=== PATIENT | female | born 1995 | race Caucasian/White ===

== ENCOUNTER 2018-12-12 04:51 | Emergency (ER) | payer SELFPAY ==
[~2018-12-12] VITALS: Ht 162.6 cm; Wt 116.6 kg
[2018-12-12] MEDS ORDERED: ONDANSETRON 4 MG (ZOFRAN) ORAL DISSOLVE TAB SL STA (05:00)
--- NOTE | 2018-12-12 05:21 | ED General ---
General Chief Complaint: Substance Abuse Stated Complaint: SUICIDAL Source of Information: Patient, EMS Exam Limitations: No Limitations History of Present Illness Date Seen by Provider: Dec 12, 2018 Time Seen by Provider: 04:53 Initial Comments Here with report of nausea. She denies suicidal ideation. She states that her moods are up and down that she does not want to kill herself. She took her prescribed medicines tonight that were given to her in the correct dosing. She did take one Tylenol 500 mg tablet as well. She reports that she did have a glass of wine and a few shots of vodka to help her mood. That did not help really and actually made her nauseated. She wanted to go to the store to get something for nausea and apparently her friend thought that she was not acting well. Ultimately EMS was called. Patient was reportedly laying in the street trying to go to sleep. Patient adamantly denies suicidality or homicidality. States that her only concern is that she is nauseated. Timing/Duration: 1-3 Hours Severity: Mild Associated Systoms: No Cough, No Fever/Chills; Nausea/Vomiting; No Shortness of Air, No Weakness Allergies and Home Medications Allergies Coded Allergies: peanut (Verified Allergy, Unknown, 12/12/18) Patient Home Medication List Home Medication List Reviewed: Yes Review of Systems Review of Systems Constitutional: see HPI; No chills, No fever EENTM: no symptoms reported Respiratory: No cough, No short of breath Cardiovascular: No chest pain, No edema Gastrointestinal: No abdominal pain; nausea; No vomiting Genitourinary: no symptoms reported Musculoskeletal: no symptoms reported Skin: no symptoms reported Psychiatric/Neurological: See HPI, Depressed, Emotional Problems; Denies Headache, Denies Weakness All Other Systems Reviewed Negative Unless Noted: Yes Past Mduneft-Uvvedu-Mfiysk Hx Past Med/Social Hx: Reviewed Nursing Past Med/Soc Hx Patient Social History Alcohol Use: Occasionally Uses Number of Drinks Today: 7 Alcohol Beverage of Choice: Wine, Vodka Recreational Drug Use: Yes Drug of Choice: MARIJUANNA Smoking Status: Never a Smoker Type Used: Cigarettes Recent Hopitalizations: No Immunizations Up To Date Tetanus Booster (TDap): Less than 5yrs PED Vaccines UTD: Yes Past Medical History Surgeries: No Respiratory: Yes Asthma Cardiac: No Neurological: No Genitourinary: No Gastrointestinal: No Musculoskeletal: No Endocrine: No HEENT: No Cancer: No Psychosocial: No Integumentary: Yes Eczema Family Medical History Reviewed Nursing Family Hx No Pertinent Family Hx Physical Exam Vital Signs Vital Signs - First Documented 12/12/18 04:51 Temp 100.0 Pulse 102 Resp 20 B/P (MAP) 137/92 (107) Pulse Ox 94 O2 Delivery Room Air Capillary Refill : Height, Weight, BMI Height: '" Weight: lbs. oz. kg; BMI Method: General Appearance: No Apparent Distress, WD/WN, Obese HEENT: PERRL/EOMI, Pharynx Normal Neck: Non Tender, Supple Respiratory: Lungs Clear, Normal Breath Sounds Cardiovascular: Regular Rate, Rhythm, No Murmur Gastrointestinal: Non Tender, Soft Back: Normal Inspection, No CVA Tenderness, No Vertebral Tenderness Extremity: Normal Range of Motion, Non Tender Neurologic/Psychiatric: Alert, Oriented x3 Skin: Normal Color, Warm/Dry Progress/Results/Core Measures Suspected Sepsis SIRS Temperature: Pulse: Respiratory Rate: Blood Pressure / Mean: Results/Orders Lab Results Laboratory Tests Test 12/12/18 05:45 Range/Units Urine Color YELLOW Urine Clarity SLIGHTLY CLOUDY Urine pH 5 5-9 Urine Specific [place] 1.015 L 1.016-1.022 Urine Protein NEGATIVE NEGATIVE Urine Glucose (UA) NEGATIVE NEGATIVE Urine Ketones NEGATIVE NEGATIVE Urine Nitrite NEGATIVE NEGATIVE Urine Bilirubin NEGATIVE NEGATIVE Urine Urobilinogen 1 NORMAL MG/DL Urine Leukocyte Esterase 1+ H NEGATIVE Urine RBC (Auto) NEGATIVE NEGATIVE Urine RBC NONE /HPF Urine WBC RARE /HPF Urine Squamous Epithelial Cells 25-50 H /HPF Urine Crystals NONE /LPF Urine Bacteria TRACE /HPF Urine Casts NONE /LPF Urine Mucus SMALL H /LPF Urine Culture Indicated NO My Orders Orders - SAVAGE MEHTA MD Ondansetron Oral Dissolve Tab (Zofran (12/12/18 05:00) Ua Culture If Indicated (12/12/18 05:21) Urine Bedside (12/12/18 05:21) Vital Signs/I&O 12/12/18 04:51 Temp 100.0 Pulse 102 Resp 20 B/P (MAP) 137/92 (107) Pulse Ox 94 O2 Delivery Room Air Capillary Refill : Progress Note : Progress Note Seen and evaluated. Patient denies suicidal ideation and is not really wanting any significant workup. Given presentation, further workup is not indicated. She is nauseated and does have a mild fever of 100 Fahrenheit. We will check UA and UCG. Zofran 4 mg sublingual ordered. Monitor patient. 0606: Overall feels better. Discharged home with return precautions. Patient verbalize understanding instructions and agreement with plan. Departure Impression Primary Impression: Nausea Additional Impression: Depression Qualified Codes: F32.9 - Major depressive disorder, single episode, unspecified Disposition: 01 HOME, SELF-CARE Condition: Improved Departure-Patient Inst. Decision time for Depature: 06:06 Referrals: NO,LOCAL PHYSICIAN (PCP) Primary Care Physician Patient Instructions: Depression, Adult (DC), Nausea and Vomiting, Adult (DC) Add. Discharge Instructions: All discharge instructions reviewed with patient and/or family. Voiced understanding. Take medications as directed. Clear liquid or light diet for the next 24 hours and then advance as tolerated. You should avoid alcohol and drugs. If you're having thoughts of suicide or increasing depression you may call the save line at [phone]. Return for worse pain, fever, vomiting, weakness, breathing problems or other concerns as needed. Scripts Ondansetron (Ondansetron Odt) 4 Mg Tab.rapdis 4 MG PO Q6H PRN for NAUSEA/VOMITING, #8 TAB 0 Refills Prov: SAVAGE MEHTA MD 12/12/18 SAVAGE MEHTA MD Dec 12, 2018 05:21
[2018-12-12 05:50] LABS: BILIRUBIN,URINE NEGATIVE (NEGATIVE); CLARITY,URINE SLIGHTLY CLOUDY; COLOR,URINE YELLOW; GLUCOSE, URINE (UA) NEGATIVE (NEGATIVE); KETONES,URINE NEGATIVE (NEGATIVE); LEUKOCYTE ESTERASE ,URINE 1+ (NEGATIVE); NITRITE,URINE NEGATIVE (NEGATIVE); PH,URINE 5 (5-9); PROTEIN,URINE NEGATIVE (NEGATIVE); UROBILINOGEN,URINE 1 MG/DL (NORMAL)
[2018-12-12 06:00] LABS: BACTERIA,URINE TRACE /HPF; SQUAMOUS EPITHELIAL CELL,UR 25-50 /HPF; WBC,URINE RARE /HPF
[2018-12-12] MEDS ORDERED: ONDA4TAB11 PO (06:08)
[2018-12-12 06:15] VITALS: BP 124/71
== END 2018-12-12 06:15 | disposition home or self-care (01) ==
LOC: ER 04:59
DX: R11.0 Nausea (principal); F32.9 Major depressive disorder, single episode, unspecified; J45.909 Unspecified asthma, uncomplicated; Z91.010 Allergy to peanuts
CPT/HCPCS: 81000; 84703; 99283